=== PATIENT | female | born 1975 | race Caucasian/White ===

== ENCOUNTER 2017-07-23 12:07 | Day surgery (SDC) | payer MEDICAID ==
--- NOTE | ~2017-07-23 | OP ---
PATIENT NAME: SARAN MCDUFFIE MEDICAL RECORD: [id number] :79 LOCATION:[facility] ADMISSION DATE: SURGEON: JULIAN SANCHEZ MD DATE OF OPERATION: 07/23/2017 PREOPERATIVE DIAGNOSIS: De Quervain stenosing tenosynovitis of the left wrist. POSTOPERATIVE DIAGNOSIS: De Quervain stenosing tenosynovitis of the left wrist. PROCEDURE: De Quervain's release, left wrist. SURGEON: Julian Sanchez MD ANESTHESIA: Local with TIVA. OPERATIVE SUMMARY IN DETAIL: After obtaining the preoperative orthopedic surgery consent as well as anesthetic consultation, evaluation, and clearance, the patient was brought to the operating room and placed on the operating table in supine position. After adequate TIVA anesthesia was administered, tourniquet was placed about the proximal aspect of the left upper extremity. Left upper extremity was then prepped and draped in routine sterile fashion. The arm was elevated and exsanguinated, tourniquet inflated to 250 mmHg. An incision was made over the radial styloid, taken down to the level of the tendon sheath which was incised to reveal substantial amount of synovitis. This was excised as well. The wound was irrigated and closed with 4-0 Prolene in routine interrupted fashion. Sterile dressings were applied. The patient was awakened, taken to recovery in stable condition. All final needle and sponge counts were correct. TRANSINT:[id number] Voice Confirmation ID: [id number] DOCUMENT ID: [id number] JULIAN SANCHEZ MD at 0827 CC: [id number] DICTATION DATE: 08/01/17 1628 INTERNET MARKETING ANALYST: 08/01/17 1706 [facility] 07/23/17 [place] [id number] [place] [id number]
[~2017-07-23 12:07] MED LIST: MICROGESTIN FE1 EACH PO; ZENZEDI
[2017-07-23 13:06] LABS: HEMATOCRIT 31.7 % (36.0-48.0); HEMOGLOBIN 9.4 g/dL (12-16); MCH 22.2 pg (26.0-34.0); MCHC 29.7 g/dL (31.0-37.0); MCV 74.9 fL (80.0-100.0); MEAN PLATELET VOLUME 9.8 fL (7.4-10.4); RBC 4.23 10x6/uL (4.00-5.40); WBC 4.7 10x3/uL (4.8-10.8)
[2017-07-23 13:11] VITALS: BP 110/67; BMI 25.8
[2017-07-23 13:37] LABS: HCG SERUM NEGATIVE (NEGATIVE)
[2017-07-23] MEDS ORDERED: MEPERIDINE HCL50 MG PO (15:09)
== END 2017-07-23 16:25 | disposition home or self-care (01) ==
LOC: D.OPS 12:07 → D.PAN 15:00 → D.OPS 16:25
PROVIDERS: Anesthesiology
DX: M65.4 Radial styloid tenosynovitis [de Quervain] (principal); Z01.812 Encounter for preprocedural laboratory examination